=== PATIENT | female | born 1970 | race American Indian/Alaskan Native ===

== ENCOUNTER 2018-04-18 15:36 | Emergency (ER) | payer OTHER ==
[2018-04-18] MEDS ORDERED: TYLENOL PO ONE (19:31)
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
[2018-04-18 20:41] VITALS: BP 136/72
== END 2018-04-18 20:39 | disposition home or self-care (01) ==
LOC: ED 15:36
DX: M25.561 Pain in right knee (principal); N93.9 Abnormal uterine and vaginal bleeding, unspecified; V89.2XXA Person injured in unspecified motor-vehicle accident, traffic, initial encounter; Y93.89 Activity, other specified; Y99.8 Other external cause status; Y92.410 Unspecified street and highway as the place of occurrence of the external cause
CPT/HCPCS: 36415; 84702; 99283